=== PATIENT | female | born 1985 | race Caucasian/White ===

== ENCOUNTER 2016-10-19 18:37 | Emergency (ER) | payer MEDICARE, MEDICAID ==
[~2016-10-19] VITALS: Ht 154.9 cm; Wt 54.5 kg
[2016-10-19 18:43] VITALS: BP 112/66; PULSE 98; RESP 16; O2SAT 99
[2016-10-19 19:31] LABS: BASOPHILS % (AUTO) 0.5 % (0-3); EOSINOPHILS % (AUTO) 5.5 % (0-5); MONOCYTES % (AUTO) 6.4 % (4-12); Mean Corpuscular Hemoglobin 24.8 pg (27.0-35.0); Mean Corpuscular Volume 79.8 fL (81-100); NEUTROPHILS % (AUTO) 59.6 % (40-74); Platelet Count 329 bil/L (150-400)
--- NOTE | 2016-10-19 20:22 | ED.REPORT ---
HPI-Seizure Date of Service October 19, 2016 ED Provider: Maciej Milligan MD A 30 year old female with a history of COPD, MRSA infection, migraines, and seizures presents to the ED accompanied by her family with a witnessed grand- mal seizure onset just prior to arrival, lasting 5-6 minutes. The patient hit her head and now reports headache, lip pain, generalized myalgias, and dizziness. The patient was on her way to the ED when the seizure occurred. She was coming to be seen for a painful, productive cough onset one week ago, with associated symptoms of fever, chills, wheeze, and diaphoresis. The patient has had similar symptoms intermittently for several months. She denies tongue injury or other symptoms. 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 Nursing Notes Stated Complaint: SEIZURE @ 1755 Chief Complaint: Seizure Nursing Notes Reviewed: Yes ([employer] not reconciled) Allergies: Coded Allergies: acetaminophen (Verified Allergy, Unknown, due to over dose in the past, 10/19/16) Uncoded Allergies: PENICILLIN (Allergy, Mild, Rash, 10/19/16) Scheduled Gabapentin (Gabapentin) 300 Mg Capsule 900 MG PO BID Scheduled PRN Benzonatate (Tessalon Perle) 100 Mg Capsule 100 MG PO TID PRN PRN For Cough Sumatriptan Succinate (Imitrex) 6 Mg/0.5 Ml Pen.injctr 6 MG SQ Q2H PRN PRN Migraine General Time Seen by Provider: 20:19 Chief Complaint Chief Complaint: Seizure, generalized, Other (Productive Cough) Hx Obtained From: Patient, Other family... Arrived By: Walk-in Onset Occurred: Just prior to arrival Symptom Duration: Since onset Location: : Head (and generalized myalgias) Quality: Aching, Painful Severity: Current: Moderate Severity: Maximum: Moderate Pertinent Negative: Relieved by nothing Related History: Reports: Known seizure disorder Immunizations: Unknown Recent Healthcare: No recent doctor visit Similar Sx Previous: Yes Past Medical History Past Medical History COPD MRSA Seizures Migraines Past Surgical History None reported Smoking History Current Every Day Smoker Social History Alcohol Use: "Social" Drug Use: In recovery (Heroin), THC Other Social History: Good social support Ambulatory Status Independent Review of Systems Review of Systems Note: + Lip pain, productive cough Constitutional: Reports: Chills, Fever Ears / Nose / Throat: Denies: Tongue pain Respiratory: Reports: Wheezing, Denies: Shortness of breath Musculoskeletal: Reports: Myalgia (Generalized) Skin: Reports Diaphoresis Neurologic: Reports: Dizziness, Headache, Seizure Complete sys rev & neg: except as marked. Physical Exam Initial Vital Signs Vital Signs (First) Date Time Temp Pulse Resp B/P Pulse Ox O2 Delivery O2 Flow Rate FiO2 10/19/16 18:43 36.7 98 16 112/66 99 Room Air Initial VS: Reviewed, Vital signs normal Head / Eyes: Atraumatic, Normocephalic ENT: Conjunctiva normal, No scleral icterus Skin: Warm, Dry Psychiatric: Mood/affect normal, Behavior normal General/Constitutional: Awake, Alert Neck: Supple, Full range of motion Respiratory / Chest: No respiratory distress Wheezing / Retractions: Positive: Wheezing severe No dyspnea Patient is very conversant Mild bronchospasm present Cardiovascular: Heart rate NL, Regular rhythm, Heart sounds NL Neurologic: Oriented X3, Speech NL, No motor deficits, No sensory deficits ENT: Airway patent Mouth: Positive: Mucous membranes dry Hoarse voice Interpretation & Diagnostics Lab Results Interpretation Result Diagram: 10/19/16191810/19/161918 Test 10/19/16 19:19 White Blood Count 9.6th/mm3 (3.8-10.1) Red Blood Count 4.51mil/mm3 (3.90-5.20) Hemoglobin 11.2g/dL (12.0-15.6) Hematocrit 36.0% (35.0-46.0) Mean Corpuscular Volume 79.8fL (81-100) Mean Corpuscular Hemoglobin 24.8pg (27.0-35.0) Mean Corpuscular Hemoglobin Concent 31.1% (32.0-37.0) Red Cell Distribution Width 15.8% (12.3-15.4) Platelet Count 329bil/L (150-400) Neutrophils (%) (Auto) 59.6% (40-74) Lymphocytes (%) (Auto) 27.8% (14-46) Monocytes (%) (Auto) 6.4% (4-12) Eosinophils (%) (Auto) 5.5% (0-5) Basophils (%) (Auto) 0.5% (0-3) Sodium Level 135mEq/L (134-144) Potassium Level 3.9mEq/L (3.5-5.2) Chloride Level 98mEq/L (97-108) Carbon Dioxide Level 24mmol/L (18-29) Blood Urea Nitrogen 13mg/dL (6-20) Creatinine 0.89mg/dL (0.57-1.00) Estimat Glomerular Filtration Rate 107mL/min (>59) Glucose Level 104mg/dL (60-99) Calcium Level 8.9mg/dL (8.5-10.1) Total Bilirubin < 0.2mg/dL (0.0-1.2) Aspartate Amino Transf (AST/SGOT) 14U/L (0-50) Alanine Aminotransferase (ALT/SGPT) 13U/L (0-32) Alkaline Phosphatase 83U/L (25-150) Total Protein 7.7g/dL (6.4-8.4) Albumin 4.2g/dL (3.4-5.0) Human Chorionic Gonadotropin, Qual Negative (Negative) Hold Feliciano Top Tube Received (Received) Lab Results Interpretation: CBC normal CMP normal X-Ray Chest Interpretation Chest Xray Interpretation: IMPRESSION: Mild medial bibasilar atelectasis given the reduced inspiration when compared to the recent prior chest plain film from 07/22/16, as discussed above. No definite pneumonia found. Dictated by: Robbi Peter M.D. on 10/19/2016 at 21:01 View: AP & lat Interpretation / Wet Read by: Interpret - Radiologist Re-Eval/Medical Decision Med Decision/Clinical Course This is a 30-year-old female with chronic seizure disorder who turns out on gabapentin (she initially denied being on any medications) who presents with an actual chief complaint of coming in for several days or worsening cough and a concern for pneumonia, but then on the way and had a brief tonic-clonic seizure. She now feels tired than typical postrecovery, therefore she has a seizure every few months. She denies fever, trauma or additional injury complaint. She does have audible bronchospasm, has some sensory history of COPD/asthma, and has a hacking cough. She has no focal deficits, does not appear intoxicated, denies recreational drug or alcohol use. She is mentating normally, and I am not finding indicating for emergent acute neuro imaging. Chest x-ray was obtained, which was negative for infiltrate. Blood work was normal. The patient received albuterol, last dose of steroids, and Tessalon Perles with improvement. She is being discharged on the same. I am not finding indication for antibiotic therapy at this time. Patient is also out of her chronic Imitrex, Kirbyro written a refill for this. She is discharged in stable condition. Source of Hx: Old records Re-Evaluation/Progress : Time of Eval: 21:47 )( Re-Eval Neurologic Exam: Alert, Pt is back to baseline Patient Status: Condition improved Re-Evaluation/Progress Note: Discussed with patient x-ray and lab results, diagnosis, and plan for discharge. Follow-up and return to the ER instructions given. Patient agrees with plan for care and all questions were addressed. Differential Diagnosis: Positive: Seizure disorder, Seizure, tonic-clonic, Negative: Anticonvulsant withdrawal, Eclampsia, Encephalitis, Hypoglycemia, Hyponatremia, Hypoxemia, Intracranial bleed, Intracranial mass/lesion, Meningitis, Seizure, new onset, Skull fracture, Tongue laceration Counseled Regarding: Diagnosis, Lab results, Need for follow-up, When/why to return to ED Discharge & Departure Impression: Primary Impression: Upper respiratory infection URI type: unspecified URI Qualified Code: J06.9 - Acute upper respiratory infection, unspecified Additional Impression: Seizure Disposition: Home Discharge Condition All VS Reviewed: Yes Condition: Improved Additional Instructions: 1. No pneumonia was appreciated on Xray today. This means that antibiotics are unlikely to be of benefit and are not recommended, and suggests that it is likely a viral infection causing your symptoms. 2. Use the albuterol inhaler 2 puffs up to every 4 hours as needed. 3. Take the remaining dose of dexamethasone 10mg (empty into juice and drink) tomorrow. 4. You can take the cough suppressant tessalon perles 200mg three times a day for cough as needed. (None of our cough medicines are particularly effective however) 5. Rest. 6. Drink plenty of fluids 7. Work on stopping smoking. 8. I have written for some imitrex for you for the migraines. 9. Return if new or worsening symptoms 10. If you need a primary care provider to follow up with, call for an appointment with Vivian Valderrama. Referrals: NOPCP (PCP) Denisha Valderrama PA-C Scribe Attestation Portions of this note were transcribed by Madisyn De Los Santos. I, Dr. Milligan, personally performed the history, physical exam, and medical decision-making; I reviewed and confirmed the accuracy of the information in the transcribed note. Signed by: India Villavicencio, 10/19/2016, 23:20 copies to: Denisha Valderrama PA-C, Matthew F MD October 19, 2016 20:22 MADISYN DE LOS SANTOS October 19, 2016 20:32
[2016-10-19] MEDS ORDERED: Albuterol 2.5 mg/3 mL Inhalation Solution NEB ONE (20:30)
[2016-10-19] MEDS ORDERED: Dexamethasone 20 mg/2 mL Oral Solution PO ONE (20:30)
[2016-10-19] MEDS ORDERED: _Albuterol-HFA 60 Puff Inhaler INHALATION PRN (20:30)
[2016-10-19 20:48] VITALS: PULSE 88; RESP 20; O2SAT 100
[2016-10-19] MEDS ORDERED: GABA-502 PO (20:52)
--- NOTE | 2016-10-19 21:03 | DRSVH ---
PROCEDURE: X-RAY CHEST, TWO VIEWS ([id number]) INDICATIONS: cough TECHNIQUE: 2 views of the chest were acquired. COMPARISON: None. FINDINGS: Surgical changes and devices: None. Lungs and pleura: No pleural effusions or pneumothorax. Lungs are reduced inspiratory volume when c ompared to the recent prior study from 07/22/16. This is associated with slight stranding in each lung base medially, but this is considered to represent atelectasis rather than definite pneumonia given the reduced inspiration.. Mediastinum: Mediastinal contours are normal. Heart size is normal. Bones and chest wall: No suspicious bony abnormalities. Soft tissues appear unremarkable. IMPRESSION: Mild medial bibasilar atelectasis given the reduced inspiration when compared to the rec ent prior chest plain film from 07/22/16, as discussed above. No definite pneumonia found. Dictated by: Robbi Peter M.D. on 10/19/2016 at 21:01 Approved by: Robbi Peter M.D. on 10/19/2016 at 21:02
[2016-10-19] MEDS ORDERED: _Proair 200 Puff/8.5 GM Inhaler INHALATION PRN (21:20)
[2016-10-19] MEDS ORDERED: SUMA6PEN SQ (21:55)
[2016-10-19] MEDS ORDERED: BENZ-12 PO (21:55)
[2016-10-19 22:05] VITALS: BP 115/66; PULSE 106; RESP 20; O2SAT 98
== END 2016-10-19 22:05 | disposition home or self-care (01) ==
LOC: SED 18:37
DX: G40.409 Other generalized epilepsy and epileptic syndromes, not intractable, without status epilepticus (principal); J06.9 Acute upper respiratory infection, unspecified; R51 Headache; W22.8XXA Striking against or struck by other objects, initial encounter; Y93.89 Activity, other specified; Y92.89 Other specified places as the place of occurrence of the external cause; Y99.8 Other external cause status; M79.1 Myalgia; R42 Dizziness and giddiness; R50.9 Fever, unspecified; R61 Generalized hyperhidrosis; K13.79 Other lesions of oral mucosa; J44.9 Chronic obstructive pulmonary disease, unspecified; F17.200 Nicotine dependence, unspecified, uncomplicated; Z86.14 Personal history of Methicillin resistant Staphylococcus aureus infection; Z88.8 Allergy status to other drugs, medicaments and biological substances
CPT/HCPCS: 36415; 71020; 80053; 84703; 85025; 94640; 94664; 99285; J7613

== ENCOUNTER 2016-11-09 15:21 | Emergency (ER) | payer MEDICARE, MEDICAID ==
[~2016-11-09] VITALS: Ht 154.9 cm; Wt 60.0 kg
[~2016-11-09 15:21] MED LIST: BENZ-12 PO; GABA-502 PO; SUMA6PEN SQ
[2016-11-09 15:26] VITALS: BP 108/71; PULSE 83; RESP 18; O2SAT 99
--- NOTE | 2016-11-09 16:08 | ED.REPORT ---
HPI-General Illness Date of Service November 09, 2016 ED Provider: Jose M Queen MD The patient is a 30 year old female with history of seizures, migraines, and COPD, who presents to the emergency department complaining of a head injury. The patient was in the shower 4 days ago when she had a seizure and fell to the ground. She hit her head and face, and has bruising around both eyes and to her left cheek. Since the fall she has noticed trouble eating, nausea, and vomiting. She denies neck pain, extremity pain, chest pain, abdominal pain, or back pain. She was diagnosed with a seizure disorder over 10 years ago and was previously on medication. She previously had an EEG taken. She is not currently on any medication for her seizures. She has been taking gabapentin that was given to her by a friend. The patient states she has been taking this because it has helped with her heroin withdrawal. She has been clean from heroin for over 4 months now. LNMP: 2 weeks ago. She denies any chance of . Nursing Notes Stated Complaint: HEAD TRAUMA,FALL AFTER SEIZURE Chief Complaint: Multiple Trauma/Fall Nursing Notes Reviewed: Yes Allergies: Coded Allergies: acetaminophen (Verified Allergy, Unknown, due to over dose in the past, 10/19/16) Uncoded Allergies: PENICILLIN (Allergy, Mild, Rash, 10/19/16) Scheduled Clindamycin (Clindamycin) 150 Mg Capsule 150 MG PO QID Gabapentin (Gabapentin) 300 Mg Capsule 900 MG PO BID Scheduled PRN Benzonatate (Tessalon Perle) 100 Mg Capsule 100 MG PO TID PRN PRN For Cough Sumatriptan Succinate (Imitrex) 6 Mg/0.5 Ml Pen.injctr 6 MG SQ Q2H PRN PRN Migraine General Time Seen by MD: 15:35 Chief Complaint Other (head injury) Hx Obtained From: Patient, Other family... (Mother) Arrived By: Walk-in Sudden in Onset?: Yes Onset Occurred: 4 days ago Symptom Duration: Since onset Location: : Face: Head Quality: Painful Severity: Current: Mild Severity: Maximum: Moderate Recent Healthcare: No recent hospitalization Similar Sx Previous: Yes Past Medical History Past Medical History Notes: Neurologist: Dr. Clark in [place] Past Medical History COPD MRSA Seizures Migraines Past Surgical History None reported Family History Noncontributory Smoking History Current Every Day Smoker Social History Hx of heroin abuse, she has been clean for 4 months. Alcohol Use: "Social" Drug Use: In recovery, THC Other Social History: Good social support, Local resident Ambulatory Status Independent Review of Systems +trouble eating Full Review of Systems Cardiovascular: Denies: Chest pain GI: Reports: Nausea, Vomiting, Denies: Abdominal pain Female: Denies: Musculoskeletal: Denies: Back pain, Neck pain Hematologic: Reports Bruising Neurologic: Reports: Headache, Seizure Complete sys rev & neg: except as marked. Physical Exam Vital Signs Vital Signs Date Time Temp Pulse Resp B/P Pulse Ox O2 Delivery O2 Flow Rate FiO2 11/09/16 18:22 85 16 134/74 99 Room Air 11/09/16 15:26 36.4 83 18 108/71 99 Room Air Initial VS: Reviewed Extremities: Vascular intact, Neuro intact, No swelling, No tenderness Skin: Warm, Dry, No cyanosis Psychiatric: Mood/affect normal, Behavior normal, Normal thought content General/Constitutional: Awake, Alert, No acute distress, Cooperative Head / Eyes: Normocephalic, PERRL, EOMI ENT: Airway patent, Mucous membranes moist Left maxillary tenderness and ecchymosis. Neck: No midline vertebral tend Respiratory / Chest: Atraumatic, Breath sounds NL, Breath sounds = bilat, No respiratory distress, No rales, No rhonchi, No wheezing, No stridor, No chest tenderness, No chest wall deformity Cardiovascular: Heart rate NL, Regular rhythm, Heart sounds NL, No gallop, No murmurs, No rubs, Cap refill not delayed, Peripheral circulation NL, Pulses = bilaterally, No gross BP differential Abdomen: Atraumatic, Soft, Non-tender, No guarding, No rebound, BS normoactive , No distention, No hernia, No palpable mass, No pulsatile mass Back: Atraumatic, Inspection NL, Full range of motion, Painless range of motion , Non-tender, No midline vertebral tend Lower Extremity / Pelvis / MS: No swelling, Non-tender, Neurologic intact, Vascular intact, No edema No calf swelling or tenderness. Neurologic: Oriented X3, Speech NL, No motor deficits, No sensory deficits, Cerebellar NL, Memory NL Interpretation & Diagnostics FACE CT IMPRESSION: 1. No fracture. 2. Multiple dental caries. 3. Multiple dental periapical lucencies. Finding is suspicious for periapical dental infection. Dictated by: Shweta Solis MD, PhD on 11/09/2016 at 17:03 Lab Results Interpretation Test 11/09/16 16:44 Hold Urine Received (Received) CT Head Interpretation IMPRESSION: No acute intracranial disease process. Dictated by: Shweta Solis MD, PhD on 11/09/2016 at 17:01 Study: Head CT no contrast Interpretation / Wet Read by: Interpret - Radiologist Re-Eval/Medical Decision Med Decision/Clinical Course Patient is a 30-year-old female who presents to the emergency department after a possible seizure event resulting in striking her face. Here in the emergency department she is afebrile, hemodynamically stable and completely neurologically intact. Full head to toe survey reveals no significant traumatic injuries other than some maxillary tenderness and mild ecchymosis. She is not . CT scan of the head and face reveals incidental finding of dental caries and possible periapical dental abscesses. There are no significant traumatic injuries. I had a very long conversation with the patient regarding her possible seizure history. She states that she may have had an EEG about 10 years ago but she is not sure. It is unclear whether she is having true seizures or not. She is not able to recall ever being on any antiepileptic medication. It is no evidence at this time of meningitis or encephalitis and her neck is supple with full range of motion. She is afebrile. Given that she has never been on any antiepileptic that she can recall I do not see any indication to start one at the moment. She currently has arrangements for outpatient neurology workup and does not desire admission to the hospital. Given that she has had these possible seizure events for 10 years I do not feel that she necessarily needs emergent admission and workup. She will follow up closely with her outpatient neurologist. At this time, I feel she is stable for discharge. Prior to discharge follow-up and return precautions were reviewed in detail with the patient who verbalized understanding and agreement with the plan. The patient was discharged in stable condition. Source of Hx: Old records, Family Time of Eval: 18:15 Re-Evaluation/Progress Note: Rechecked the patient. Discussed plan for discharge. All questions were addressed. Counseled Regarding: Diagnosis, Lab results, Need for follow-up, When/why to return to ED Discharge & Departure Primary Impression: Seizure Additional Impressions: Facial injury Encounter type: initial encounter Qualified Code: S09.93XA - Unspecified injury of face, initial encounter Dental caries IV drug abuse Disposition: Home Discharge Condition All VS Reviewed: Yes Condition: Stable Additional Instructions: Thank you for seeking care at the emergency room. Our primary goal today in the ED was to evaluate you for any life-threatening conditions. Your evaluation was reassuring. You should call your neurologist tomorrow to see if you can move your appointment up to an earlier date. You have dental infections that were seen on the CT scan. You will need to followup with a dentist. We will send you home with antibiotics. You should return to the ED immediately if you develop recurrent seizures, increased pain, confusion, dizziness, weakness or any other concerning signs or symptoms. Thank you for letting us partake in your care today. Referrals: NOPCP (PCP) Scribe Attestation Portions of this note were transcribed by Leticia Izaguirre. I, Dr. Queen personally performed the history, physical exam and medical decision-making; I reviewed and confirmed the accuracy of the information in the transcribed note. Signed by: India Osorio 11/09/2016 at 1830. Jose M Queen MD November 09, 2016 16:08 Leticia Izaguirre November 09, 2016 16:15
--- NOTE | 2016-11-09 17:05 | DRSVH ---
PROCEDURE: CT BRAIN WITHOUT CONTRAST ([id number]) INDICATIONS: trauma TECHNIQUE: Noncontrast 4.5 mm thick angled axial sections acquired from the foramen magnum to the vertex, with c oronal reformats. COMPARISON: None. FINDINGS: Image quality: Excellent. CSF spaces: Basal cisterns are patent. No extra-axial fluid collections. Ventricles are normal in size and shape. Brain: No midline shift. No intracranial masses or hemorrhage. Cerrato-white matter interface is norm al. Skull and face: Calvarium and visualized facial bones are intact, without suspicious lesions. Bilate ral TMJ osteoarthritic degenerative changes are noted. Sinuses: Visualized sinuses and mastoids are clear. IMPRESSION: No acute intracranial disease process. Dictated by: Shweta Solis MD, PhD on 11/09/2016 at 17:01 Approved by: Shweta Solis MD, PhD on 11/09/2016 at 17:03
--- NOTE | 2016-11-09 17:12 | DRSVH ---
PROCEDURE: CT FACE WITHOUT CONTRAST ([id number]) INDICATIONS: trauma TECHNIQUE: Noncontrast 1.5 mm thick axial images acquired from the mandible through the frontal sinuses, with co helena and sagittal reformatting. For radiation dose reduction, the following was used: automated ex posure control. COMPARISON: None. FINDINGS: Image quality: Excellent. Bones and teeth: Orbital schwarz are intact. Sinus schwarz show no fracture or deformity. Nasal bones and septum are intact. Visualized portions of the mandible demonstrate no fractures or subluxation. Zygomatic arches are intact. Pterygoid plates are intact. Visualized portions of the skull base an d auditory canals are intact. Osseous degenerative changes noted in the temporomandibular joints bila terally. Numerous dental caries noted. Sinuses: Large right maxillary sinus mucus retention cyst versus polyp is noted. Small left maxillary sinus mucous retention cyst versus polyp noted. 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 Mastoid a ir cells are aerated. Soft tissues: No edema, masses, or fluid collections. No enlarged lymph nodes. No soft tissue lace rations or debris. Vascular: Visualized vascular structures appear normal in the absence of contrast. Bony vascular fo ramina and canals are intact. IMPRESSION: 1. No fracture. 2. Multiple dental caries. 3. Multiple dental periapical lucencies. Finding is suspicious for periapical dental infection. Dictated by: Shweta Solis MD, PhD on 11/09/2016 at 17:03 Approved by: Shweta Solis MD, PhD on 11/09/2016 at 17:11
[2016-11-09] MEDS ORDERED: AMOX-366 PO (18:15)
[2016-11-09] MEDS ORDERED: CLIN-77 PO (18:21)
[2016-11-09 18:22] VITALS: BP 134/74; PULSE 85; RESP 16; O2SAT 99
== END 2016-11-09 18:23 | disposition home or self-care (01) ==
LOC: SED 15:21
DX: R56.9 Unspecified convulsions (principal); S09.8XXA Other specified injuries of head, initial encounter; W18.30XA Fall on same level, unspecified, initial encounter; Y93.E1 Activity, personal bathing and showering; Y92.012 Bathroom of single-family (private) house as the place of occurrence of the external cause; Y99.8 Other external cause status; K02.9 Dental caries, unspecified; F11.10 Opioid abuse, uncomplicated; J44.9 Chronic obstructive pulmonary disease, unspecified; F17.200 Nicotine dependence, unspecified, uncomplicated; Z88.0 Allergy status to penicillin; Z88.6 Allergy status to analgesic agent
CPT/HCPCS: 70450; 70486; 81025; 99284; G0463